=== PATIENT | female | born 2000 | race Caucasian/White ===

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

== ENCOUNTER 2022-05-28 06:05 | Emergency (ER) | payer OTHER ==
[2022-05-28 06:34] VITALS: BP 124/79; PULSE 74; RESP 18; TEMP 98.1; BMI 21.4
[2022-05-28] MEDS ORDERED: FAMOTIDINE 20 MG TABLET PO ONE (07:23)
[2022-05-28] MEDS ORDERED: MAG HYDROX/AL HYDROX/SIMETH -MYLANTA- ORAL SUSPENSION PO ONE (07:23)
[2022-05-28] MEDS ORDERED: MAG HYDROX/AL HYDROX/SIMETH 30 ML UNIT-DOSE CUP ONE ×2 (07:44→07:50)
[2022-05-28] MEDS ORDERED: FAMOTIDINE 20 MG TABLET ONE (07:44)
== END 2022-05-28 09:00 | disposition home or self-care (01) ==
LOC: JER 06:05
DX: U07.1 COVID-19 (principal); R11.0 Nausea; R10.13 Epigastric pain
CPT/HCPCS: 0241U-QW; 84703; 93005; 93010; 99284-25

== ENCOUNTER 2023-01-20 20:16 | Emergency (ER) | payer OTHER ==
[2023-01-20 20:20] VITALS: BP 119/80; PULSE 90; RESP 18; TEMP 98.7; BMI 21.1
[2023-01-20] MEDS ORDERED: FAMOTIDINE 20 MG/50 ML IVPB 20 MG/50 ML MG IVPB ONE ×2 (21:29→21:40)
[2023-01-20] MEDS ORDERED: ACETAMINOPHEN 1000 MG/100 ML BAG IVPB ONE (21:29)
[2023-01-20] MEDS ORDERED: MAG HYDROX/AL HYDROX/SIMETH 30 ML UNIT-DOSE CUP PO ONE (21:29)
[2023-01-20] MEDS ORDERED: SODIUM CHLORIDE 1,000 ML IV STA (21:29)
[2023-01-20] MEDS ORDERED: MAG HYDROX/AL HYDROX/SIMETH 30 ML UNIT-DOSE CUP ONE (21:40)
[2023-01-20] MEDS ORDERED: ACETAMINOPHEN INJECTION 100 ML IVPB ONE (21:40)
[2023-01-20 21:58] LABS: EOS % 3.7 % (0-4.5); HEMATOCRIT 38.4 % (32.4-45.2); HEMOGLOBIN 12.6 GM/dL (10.7-15.3); LYMPH % 28.1 % (8-40); MCH 29.3 pg (25.7-33.7); MCHC 32.8 g/dl (32.0-36.0); MEAN CELL VOLUME 89.5 fl (80-96); MEAN PLT VOLUME 9.3 fl (7.5-11.1); MONO % 7.3 % (3.8-10.2); NEUT % 59.9 % (42.8-82.8); PLATELET COUNT 260 10^3/uL (134-434); RDW 14.4 % (11.6-15.6)
[2023-01-20 22:27] LABS: POTASSIUM 3.7 mmol/L (3.5-5.1)
[2023-01-20 22:29] LABS: CALCIUM 9.2 mg/dL (8.5-10.1)
[2023-01-20 22:30] LABS: BLOOD UREA NITROGEN 11.2 mg/dL (7-18)
[2023-01-20 22:33] LABS: CREATININE 0.8 mg/dL (0.55-1.3)
[2023-01-20 22:34] LABS: BILIRUBIN,TOTAL 0.4 mg/dL (0.2-1); TOT PROT 7.4 g/dl (6.4-8.2)
== END 2023-01-20 23:32 | disposition home or self-care (01) ==
LOC: JER 20:16
PROC: 3E033GC Introduction of Other Therapeutic Substance into Peripheral Vein, Percutaneous Approach (ICD-10-PCS; principal; 2023-01-20)
PROC: 3E033NZ Introduction of Analgesics, Hypnotics, Sedatives into Peripheral Vein, Percutaneous Approach (ICD-10-PCS; 2023-01-20)
DX: R11.2 Nausea with vomiting, unspecified (principal); R10.13 Epigastric pain; R07.0 Pain in throat; R53.1 Weakness; R42 Dizziness and giddiness; Z20.822 Contact with and (suspected) exposure to COVID-19
CPT/HCPCS: 0241U-QW; 36415; 80053; 84703; 85025; 99284-25